=== PATIENT | female | born 1935 | race Caucasian/White ===

== ENCOUNTER 2022-01-06 13:15 | Outpatient (RCR) | payer MEDICARE, SELFPAY | END 2022-02-25 17:34 | disposition home or self-care (01) | PROVIDERS: PCP Physician Assistant; Visit Provider Physician Assistant | DX: M54.42 Lumbago with sciatica, left side (principal); Z51.89 Encounter for other specified aftercare | CPT/HCPCS: 97110; 97140 ==

== ENCOUNTER 2025-02-26 14:06 | Outpatient (CLI) | payer MEDICARE, SELFPAY | END 2025-02-26 14:07 | disposition home or self-care (01) | LOC: AMB 20:14 | PROVIDERS: Visit Provider Emergency Medicine | DX: R53.1 Weakness (principal); R19.7 Diarrhea, unspecified | CPT/HCPCS: A0425; A0427 ==

== ENCOUNTER 2025-02-26 14:41 | Inpatient (IN) | payer MEDICARE, SELFPAY ==
--- OUTSIDE RECORDS SUMMARY | 2025-02-26 14:44 | XMS_ITS | Clinical Summary ---
Author Organization [employer] [facility] Address [address] [place] [id number] Care Team Providers Care Coal Inspector Name Role Phone Yasmine Young Primary Care Provider [phone] Allergies No known active allergies Medications FISH OIL 1,000 MG CAP one tablet twice daily 0 8 Active CALCIUM + D 600 MG (1,500)-200 UNIT TAB one tablet twice daily 0 8 Active aspirin enteric coated 81 mg tablet Take 1 tablet by mouth once daily with a meal. 0 2 Active cholecalciferol (VITAMIN D) 1,000 unit capsuleIndications: Hypertension, unspecified type Take 1 capsule by mouth once daily. 0 0 Active amLODIPine (NORVASC) 10 mg tabletIndications:H ypertension, unspecified type Take 1 Tablet (10 mg) by mouth once daily. 100 Tablet 3 4 Active atorvastatin (LIPITOR) 40 mg tabletIndications:H yperlipidemia, unspecified hyperlipidemia type Take 1 Tablet (40 mg) by mouth at bedtime. 100 Tablet 3 4 Active levothyroxine (SYNTHROID) 88 mcg tabletIndications:H ypothyroidism, unspecified type Take 1 Tablet (88 mcg) by mouth once daily. 100 Tablet 3 4 Active lisinopriL (PRINIVIL; ZESTRIL) 40 mg tabletIndications:H ypertension, unspecified type Take 1 Tablet (40 mg) by mouth once daily. 100 Tablet 3 4 Active traZODone (DESYREL) 100 mg tabletIndications:I nsomnia, idiopathic Take 1 Tablet (100 mg) by mouth at bedtime. 100 Tablet 3 4 Active cephalexin 500 mg capsuleIndications: skin and skin structure infection Take 1 Capsule (500 mg) by mouth four times daily for 7 days. 28 Capsule 5 02/05/20 25 cephalexin 500 mg capsuleIndications: Cellulitis of skin Take 1 Capsule (500 mg) by mouth four times daily for 7 days. 28 Capsule 5 02/14/20 25 Active Problems Problem Noted Date Diagnosed Date Stage 3a chronic kidney disease 04/21/2024 Hyperlipidemia 04/21/2024 Prediabetes 03/05/2020 Hypertension 09/29/2012 Chest pain 03/08/2012 Dyslipidemia 03/08/2012 Hypothyroidism 03/08/2012 Equivocal stress test 03/03/2012 Overview (03/14/2012): -Stress echocardiogram 02/08/2012 Exercised for 1 minute and 36 seconds, stopping secondary to dyspnea [address] segments in inferolateral leads Echo images demonstrated lack of hyperdynamic response, but no definite RWMA Normal angiogram 03/08/12 Resolved Problems Problem Noted Date Diagnosed Date Resolved Date Screening for osteoporosis 04/11/2015 1 06/22/2023 Overview (04/11/2015): Normal bone density 04/10/15. Repeat 5-7 years. Post herpetic neuralgia 02/05/2008 07/0 11/2008 Unspecified hypothyroidism 11/02/2007 1 Other and unspecified hyperlipidemia 11/02/2007 03/08/2012 Insomnia, unspecified 11/02/20072011 Encounters Date Type Department Care Team Description 02/13/[address] [facility] [address] [place] [address] Raymond Redd MD Questions (Pain middle knuckle. ) 02/11/[address] [address] [place] [address] Yasmine Young PA Follow Up (Finger ); Hand Pain/problem (Also numbness in feet and toes) 02/06/2025 2:15 PM CDT Office Visit [facility] [address] [place] [address] Raymond Redd MD Follow Up (RT hand swelling- has gone down, but still having pain in the middle fingers and unable to lift ) 02/06/2025 Travel 02/05/[address] [facility] [address] [place] [address] Yasmine Young PA Derm Problem 01/30/[address] [address] [place] [address] Raymond Redd MD Results (labs) 01/28/2025 10:25 AM CDT Office Visit [facility] [address] [place] [address] Raymond Redd MD Hand Pain/problem (RT hand- swelling and redness, painful - 01/24 woke up ) 01/28/2025 Travel from Last 3 Months Immunizations Immunization Administration Dates Next Due AMB Influenza, IIV3 (Age >=3 years)(Flu Clinic Only) 03/10/2011,03/10/2010,03/07/2008 AMB Influenza, IIV4 PF (=>6 mos Flulaval,Fluzone Fluarix)(Flu Clinic Only) 03/01/2018 COVID-19 vaccine ([facility] 30mcg/0.3mL) PF, MDV 03/26/2021 Influenza, High-dose Inactivated 04/16/2016,03/09,02/27/2014 Influenza, IIV3 (Age 6-35 mos) 03/10/2011 Influenza, IIV3 (Age >=3 years) 02/07/20 13,01/27/2012,04/06/2007,2005,04/28/2005 Influenza, Inactivated AIIV4 (Age 65+ Years) Preserv Free 04/14/2023,03/18/2022,03/26/2021,2019 Influenza, Inactivated IIV3 (Age 65+ Years) Preserv Free 04/19/2024,03/07/2019,06/10/2017 Pneumococcal Poly,23-Valent (Pneumovax) 04/16/2016 Pneumococcal conj 13-Valent (Prevnar 13) 03/20/2015 Td, Preservative Free (age > = 7 Years) 11/12/2008 Family History Medical History Relation Name Comments Hyperlipidemia Brother 1 Cancer Brother 2 not sure what t ype of cancer Heart Disease Brother 3 CABG, defibril lator Heart Disease Father [place] in 60s Diabetes Mother Cancer Sister liver? Anesthesia Malignant Hyperthermia No Family History Cancer-breast No Family History Cancer-colon No Family History Relation Name Status Comments Brother 1 Brother 2 Brother 3 Father Mother Sister Social History Tobacco Use Types Packs/Day Years Used Date Smoking Tobacco: Former Cigarettes Smokeless Tobacco: Never Tobacco Cessation:Counseling Given: Yes Comments:off and on smoker (6 to 7 cigarettes a day) Alcohol Use Standard Drinks/Week Comments Not Currently 0 (1 standard drink = 0.6 oz pur e alcohol) very occasionally PHQ-2 Answer Date Recorded PHQ-2 TOTAL SCORE 2 04/19/2024 Social Connections Answer Date Recorded Do you often feel lonely or isolated from those around you? 0 04/19/2024 Financial Resource Strain Answer Date R ecorded Difficulty of Paying Living Expenses 3 04/19/2024 Difficulty of Paying Living Expenses Not on file 04/19/2024 Food Insecurity Answer Date Recorded Do you worry your food will run out before you are able to buy more? 1 04/19/2024 Transportation Needs Answer Date Record ed Does lack of transportation keep you from medica l appointments? 1 04/19/2024 Does lack of transportation keep you from work, meetings or getting things that you need? 1 04/19/2024 Housing Stability Answer Date Recorded What is your housing situation today? 1 04/19/2024 Utilities Answer Date Recorded Do you have trouble paying f or utilities (for example, heat, electricity, water, phone)? 1 04/19/2024 Comments No Sex and Gender Information Value Date Recorded Sex Assigned at Not on file Legal Sex Female 6:55 AM [employer] Gender Identity Not on file Sexual Orientation Not on file Obstetrics History Last Filed Vital Signs Vital Sign Reading Time Taken Comments Blood Pressure 148/69 02/06/2025 2:22 PM CDT Pulse 59 02/06/2025 2:22 PM CDT Temperature 36.7 C (98.1 F) 02/06/2025 2:22 PM CDT Respiratory Rate 20 06/06/2019 12:44 PM [employer] Oxygen Saturation 97% 02/06/2025 2:22 PM CDT Inhaled Oxygen Concentration - - Weight 73 kg (161 lb) 02/06/2025 2:22 PM CDT Height 157.2 cm (5' 1.89) 04/19/2024 10:[address] Body Mass Index 29.55 04/19/2024 10:03 AM [employer] Plan of Treatment Health Maintenance Due Date Last Done Comments Zoster (shingles) series for age 50+ (1 of 2) 11/18/1987 RSV vaccine for adults or (1 - 1-dose 75+ series) 2012 Tetanus booster 11/12/2018 11/12/2008 COVID-19 vaccine series ( season) 2025 03/26/2021, 08/01/2020, 07/11/2020 Influenza Vaccine (#1) 2025 , 04/14/2023, 03/18/2022, Additional history exists BMI (ht and wt on same day) for age 18+ 04/19/2025 04/19/2024, 04/14/2023, 04/08/2022, Additional history exists Medicare Wellness for age 65+ 04/20/2025 04/19/2024, 04/14/2023, 04/08/2022, Additional history exists Depression screening for age 12+ 04/23/2025 04/23/2024, 04/19/2024, 04/18/2023, Additional history exists DEXA/DXA scan for age 65+ Completed 04/10/2015, 11/2008 Pneumococcal series for age 50+ Completed 04/16/2016, 03/20/2015 Hepatitis B series for 19+ Aged Out N o longer eligible based on patient's age to complete this topic Procedures Procedure Name Priority Date/Time Associated Diagnosis Comments CBC W PLT NO DIFF Routine 01/28/2025 11: 35 AM CDT Cellulitis of skin BASIC METABOLIC PANEL Routine 01/28/2025 11:35 AM CDT Cellulitis of skin XR DXA BONE DENSITY 2 SITES AXIAL Routine 04/10/2015 2:25 PM [employer] Postmenopausal state from Last 3 Months or Most Recently Relevant to Health Maintenance Results * (ABNORMAL) CBC W PLT NO DIFF (01/28/2025 11:35 AM CDT) WHITE BLOOD CELL COUNT 12.5(H) 3.8 - 10.8 Thousand/ uL 01/29/2025 3:21 AM CDT [facility] RED BLOOD CELL COUNT 4.25 3.80 - 5.10 Million/u L 01/29/2025 3:21 AM CDT [facility] HEMOGLOBIN 12.2 11.7 - 15.5 g/dL 01/29/2025 3:21 AM CDT [facility] HEMATOCRIT 37.0 35.0 - 45.0 % 01/29/2025 3:21 AM CDT [facility] MCV 87.1 80.0 - 100.0 fL 01/29/2025 3:21 AM CDT [facility] MCH 28.7 27.0 - 33.0 pg 01/29/2025 3:21 AM CDT [facility] MCHC 33.0 32.0 - 36.0 g/dL 01/29/2025 3:21 AM CDT [facility] Comment: For adults, a slight decrease in the calculated MCHC value (in the range of 30 to 32 g/dL) is most likely not clinically significant; however, it should be interpreted with caution in correlation with other red cell parameters and the patient's clinical condition. RDW 13.7 11.0 - 15.0 % 01/29/2025 3:21 AM CDT [facility] PLATELET COUNT 328 140 - 400 Thousand/ uL 01/29/2025 3:21 AM CDT [facility] MPV 10.6 7.5 - 12.5 fL 01/29/2025 3:21 AM CDT [facility] Blood BLOOD SPECIMEN / Unknown [facility] / Unknown 01/28/2025 11:35 AM CDT 01/28/2025 11:35 AM CDT Raymond Redd MD HEMATOLOGY Final Result [facility] [address] [place] [address], * (ABNORMAL) BASIC METABOLIC PANEL (01/28/2025 11:35 AM CDT) SODIUM 137 135 - 146 mmol/L 01/29/2025 4:57 AM CDT [facility] POTASSIUM 4.2 3.5 - 5.3 mmol/L 01/29/2025 4:57 AM CDT [facility] CARBON DIOXIDE 23 20 - 32 mmol/L 01/29/2025 4:57 AM CDT [facility] GLUCOSE 104(H) 65 - 99 mg/dL 01/29/2025 4:57 AM CDT [facility] Comment: Fasting reference interval For someone without known diabetes, a glucose value between 100 and 125 mg/dL is consistent with prediabetes and should be confirmed with a follow-up test. CALCIUM 9.2 8.6 - 10.4 mg/dL 01/29/2025 4:57 AM CDT [facility] CREATININE 1.09(H) 0.60 - 0.95 mg/dL 01/29/2025 4:57 AM CDT [facility] BUN/CREATININE RATIO 17 6 - 22 (calc) 01/29/2025 4:57 AM CDT [facility] EGFR 49(L) > OR = 60 mL/min/1. 73m2 01/29/2025 4:57 AM CDT [facility] UREA NITROGEN (BUN) 18 7 - 25 mg/dL 01/29/2025 4:57 AM CDT [facility] ELECTROLYTE BALANCE 12 7 - 17 mmol/L (calc) 01/29/2025 4:57 AM CDT [facility] CHLORIDE 102 98 - 110 mmol/L 01/29/2025 4:57 AM CDT [facility] Blood BLOOD SPECIMEN / Unknown [facility] / Unknown 01/28/2025 11:35 AM CDT 01/28/2025 11:35 AM CDT Raymond Redd MD CHEMISTRY Final Result [facility] [address] [place] [address], [place] [phone] * XR DXA BONE DENSITY 2 SITES (04/10/2015 2:25 PM [employer]) Anatomical Region Laterality Modality Spine, HIPS, HIPL, HIPR Other Narrative 04/11/2015 8:04 AM [employer] Please see scanned document for results of this study. Yuly OWUSU DEXA Final Resu lt from Last 3 Months or Most Recently Relevant to Health Maintenance Insurance MEDICARE PART A HB ONLY MEDICARE PART B HB ONLY [employer] MED[employer]ARE ADVANTAGE Advance Directives * Full Code (Latest Code Status on File) Date Activated Date Inactivated Comments 03/08/2012 9:51 AM 03/08/2012 5:50 PM Care Teams Coal Inspector Relationship Specialty Start Date End Date Yasmine Young PA [address] [place] [address] PCP - General Physician [employer] Patcher 04/17/23
[2025-02-26 14:48] VITALS: BP 148/69; PULSE 63; RESP 16; TEMP 36.5; O2SAT 94; BMI 29.4
--- NOTE | 2025-02-26 15:23 | ED.GENADULT ---
HPI - General Adult General Date Seen: 02/26/25 Chief complaint: Diarrhea Stated complaint: Weakness Time Seen by Provider: 02/26/25 15:08 History of Present Illness HPI narrative: 89 yo F presenting to the ER today from home by 911. She has had diarrhea for 4 days since Tuesday. This morning her family tried to contact her by phone, but the patient did not answer. She was found on the floor of her living room and had diarrhea all over. She think she was probably on the floor for a couple of hours. Blood sugar was 162 per EMS. Per her records from [facility] she has a past medical history hypertension, shingles, hypothyroidism, chest pain within normal angiogram in 2011. She was treated with a course of cephalexin for cellulitis- swelling and infection of her right hand in January. She has notes from the [facility] clinic on 01/28 . She had a follow-up visit on 02/06. History from the patient and from her daughter says that she began to be sick sometime in the past few days. Her daughter's visitor last and she was definitely fairly normal then. Patient thinks she probably started developing diarrhea on Tuesday. She describes having watery brownish dark brown diarrhea. No blood or mucus. At least 3 times per day. Along with that very poor appetite but no nausea vomiting. No fever. No significant abdominal pain at home. Patient does not exactly recall what happened but she was in her living room and then she fell to the floor. She is not sure how long she had been there but probably a couple of hours this morning. She had been incontinent of diarrhea on the floor because she was too weak to get up and get to the bathroom. She denies any painful injuries from falling. Her daughters tried to call her but she did not answer the phone, so they called for a welfare check and EMS providers found her on the floor and brought her here to the ER. Related Data Home Medications ?Medication ?Instructions ?Recorded ?Confirmed Calcium + D 02/26/25 Vitamin D (with calcium) 02/26/25 amlodipine 10 mg tablet 10 mg PO DAILY 02/26/25 02/26/25 aspirin 81 mg tablet,delayed 81 mg PO DAILY 02/26/25 02/26/25 release (Adult Aspirin Regimen) atorvastatin 40 mg tablet 40 mg PO QHS 02/26/25 02/26/25 levothyroxine 88 mcg tablet 88 mcg PO DAILY 02/26/25 02/26/25 lisinopril 40 mg tablet 40 mg PO DAILY 02/26/25 02/26/25 omega 7-jaf-ves-fish oil 1,000 mg 1 cap PO BID 02/26/25 02/26/25 (120 mg-180 mg) capsule (Fish Oil) trazodone 100 mg tablet 100 mg PO QHS PRN 02/26/25 02/26/25 Allergies Allergy/AdvReac Type Severity Reaction Status Date / Time No Known Drug Allergies Allergy Verified 02/26/25 14:54 Exam Narrative: Exam Narrative: Constitutional: Appears well-developed and well-nourished. Alert. Looks very tired and worn down, but is Conversant. HENT: Head: Atraumatic. Nose: Nose normal. Mouth/Throat: Oral mucosa is clear but very dry and desiccated. no trismus. There is some adherent brown material on her tongue. Pharynx normal. Eyes: Conjunctivae normal. EOM normal. Pupils equal, round, and reactive to light. No scleral icterus. Neck: Normal range of motion. Neck supple. No tracheal deviation present. No JVD Cardiovascular: Normal rate, regular rhythm. No gallop. No friction rub. No murmur heard. Symmetric radial artery pulses Pulmonary/Chest: Effort normal. No stridor. No respiratory distress. No wheezes. No rales. No rhonchi . No tenderness. Abdominal: Soft. Bowel sounds normal. No distension. No mass. Left lower quadrant and left mid abdominal tenderness. No rebound. No guarding. Musculoskeletal: RUE: Normal range of motion. No tenderness. No deformity LUE: Normal range of motion. No tenderness. No deformity RLE: Normal range of motion. No edema. No tenderness. No deformity LLE: Normal range of motion. No edema. No tenderness. No deformity Neurological: Alert and oriented to person, place, and time. Generalized weakness and requires assistance to sit up in bed. No focal strength deficit. CN II-VII intact. No sensory deficit. GCS eye subscore is 4. GCS verbal subscore is 5. GCS motor subscore is 6. Normal coordination Skin: Skin is warm and dry. No rash noted. No pallor. Normal capillary refill. She does have some dry feces on her hands and under her fingernails. She also has an abrasion on her left lateral knee that is possibly a pressure sore from laying on the floor. Psychiatric: Normal mood. Const: Vital Signs, click to edit/add: Vital Signs - 24 hr 02/26/25 14:48 02/26/25 19:24 Temperature 97.7 F 98.6 F Pulse Rate [Pulse Oximeter] 63 50 L Respiratory Rate 16 18 Blood Pressure [Ri ght Upper Arm] 148/69 H 130/49 L Pulse Oximetry 94 93 Oxygen Delivery Me thod Room Air Room Air Course Course ED Course: Recheck-patient back from CT. Nurses are so finally working on placing Lovett catheter had ordered earlier to monitor urine output. CT scan does show evidence the for bladder or distension with vesicoureteral reflux. After his Lovett catheter was placed she had output of more than 1200 mL of yellow urine. Reevaluation(s) Reevaluation #1: Has not had any further diarrhea since arriving here therefore stool culture not obtained yet. Vital Signs Vital signs: Initial Vital Signs Temperature 97.7 F 02/26/25 14:48 Temperature Source Temporal Artery Scan 02/26/25 14:48 Pulse Rate 63 02/26/25 14:48 Respiratory Rate 16 02/26/25 14:48 Blood Pressure 148/69 H 02/26/25 14:48 Blood Pressure Mean 95 02/26/25 14:48 Blood Pressure Position Supine 02/26/25 14:48 Pulse Oximetry 94 02/26/25 14:48 Oxygen Delivery Method Room Air 02/26/25 14:48 Vital Signs Temperature 97.7 F 02/26/25 14:48 Pulse Rate 63 02/26/25 14:48 Respiratory Rate 16 02/26/25 14:48 Blood Pressure 148/69 H 02/26/25 14:48 Pulse Oximetry 94 02/26/25 14:48 Oxygen Delivery Method Room Air 02/26/25 14:48 Temperature 98.6 F 02/26/25 19:24 Pulse Rate 50 L 02/26/25 19:24 Respiratory Rate 18 02/26/25 19:24 Blood Pressure 130/49 L 02/26/25 19:24 Pulse Oximetry 93 02/26/25 19:24 Oxygen Delivery Method Room Air 02/26/25 19:24 Medications Administered Medications: Discontinued Medications Generic Name Dose Route Start Last Admin Trade Name Freq PRN Reason Stop Dose Admin Sodium Chloride 1,000 mls @ 1,000 mls/hr 02/26/25 15:30 02/26/25 15:59 0.9 % Sodium Chloride 1000 Ml IV 02/26/25 16:29 1,000 mls/hr .Q1H ESPINOZA Administration Medical Decision Making MDM Narrative Medical decision making narrative: 89-year-old female brought to the ER today by EMS from home. She was not answering her phone this morning and was found on the floor of her living room when EMS arrived 1. GI. Has been having frequent brown watery diarrhea since last Tuesday or so, roughly 4 days. Concern with the diarrhea is potential for C diff. Stool culture and C. diff study has been ordered but not obtained yet. She has recently been on antibiotics for his cellulitis affecting her left hand. Fortunately CT scan of her abdomen and pelvis did not show any evidence for severe colitis or toxic megacolon. Surprisingly, she has not had any further diarrhea since arrival here in the ER. CT also did not show any evidence for any other acute surgical GI emergency. COVID/influenza/RSV negative looking for potential viral causes of her diarrhea. 2. Renal/electrolytes. The patient does clinically appear to be quite dehydrated with dry mucous membranes and generalized weakness. Concern here would be for an acute kidney injury due to her dehydration. She was also found on the floor and with an unknown down time. She think she probably fell this morning but is not exactly clear. Concern would be also potentially for rhabdomyolysis. Fortunately lab workup shows fairly normal electrolytes with sodium 143, potassium 4.0. Kidney function is fairly normal with a BUN of 30 and a creatinine of 1.0, likely elevated BUN due to pre renal. CK is abnormal at 1979 Magnesium normal at 2.3. I ordered normal saline bolus to help promote diuresis in the setting of elevated CK to try to prevent an acute kidney injury. UA does not show any sign of infection but does show 2+ blood which is probably actually myoglobin from her muscle injury. On CT scan we do note significant bladder distention and bilateral renal reflux. Lovett catheter was placed and she had output of more than 1200 mL of clear sheehan/orange tinged urine. 3. Cardiac. Patient denies any chest pain or palpitations. EKG shows nonspecific changes but no definite ischemia. Troponin is minimally detectable at 0.09 (this is 2 times the upper limit of the cut off for normal at 0.04). 2 hour delta troponin shows no change at 0.09. Flat troponin would suggest this is probably demand ischemia rather than evolving ACS. 4. Hepatic. LFTs are mildly abnormal with a total bilirubin of 1.9, AST 100, ALT of 39. Unclear etiology. 5. Pulmonary. CT scan shows ?tree in bud? nodular opacities similar to CT from 3 years ago in 2021. She is not having any acute respiratory symptoms. Discussed with our hospitalist, Dr. Gonzales, who will admit for hydration and further workup. Lab Data Labs: Lab Results 02/26/25 02/26/25 02/26/25 Range/Units 15:56 18:04 18:30 WBC 12.07 H (4.50-11.00) K/uL RBC 4.94 (4.00-5.20) m/uL Hgb 13.8 (12.0-16.0) gm/dL Hct 43.2 (33.0-51.0) % MCV 87 (80-100) fL MCH 28 (26-34) pg MCHC 32 (32-36) gm/dL RDW Coeff of Ascencion 15.0 (11.5-15.5) % Plt Count 329 (140-440) K/uL Neut % (Auto) 79.7 H (42.0-72.0) % Lymph % (Auto) 9.8 L (20-44) % [place] % (Auto) 9.1 (0.0-11.0) % Eos % (Auto) 0.1 (0.0-7.0) % Baso % (Auto) 0.1 (0.0-3.0) % Neut # (Auto) 9.60 H (1.7-7.0) K/uL Lymph # (Auto) 1.20 (0.90-2.90) K/uL [place] # (Auto) 1.10 H (0.00-0.90) K/UL Eos # (Auto) 0.00 (0.00-0.50) K/uL Baso # (Auto) 0.00 (0.00-0.30) K/uL Abs Immat Gran (auto) 0.10 (0.00-0.30) K/uL Imm/Tot Granulo (auto) 1.2 % Sodium 143 (135-149) mmol/L Potassium 4.0 (3.6-5.1) mmol/L Chloride 105 (96-114) mmol/L Carbon Dioxide 24 (20-32) mmol/L Anion Gap 14 (7-15) mEq/L BUN 30 (7-30) mg/dL Creatinine 1.0 (0.5-1.5) mg/dL Estimated Creat Clear 31.35 Estimated GFR 55 ml/min Glucose 132 H (60-115) mg/dL Lactate 1.9 (0.5-1.9) mmol/L Calcium 9.4 (8.4-10.6) mg/dL Magnesium 2.3 (1.5-2.6) mg/dL Total Bilirubin 1.9 H (0.1-1.5) mg/dL AST 100 H (12-35) U/L ALT 39 H (4-35) U/L Alkaline Phosphatase 87 (40-150) U/L Total Creatine Kinase 1979 H (41-117) U/L Troponin I 0.09 H* 0.09 H* (0.01-0.04) ng/mL Total Protein 7.5 (6.0-8.3) g/dL Albumin 4.2 (3.3-5.0) g/dL Urine Color Yellow (Yellow) Urine Appearance Clear (Clear) Urine pH 5.5 (5.0-8.5) Ur Specific [place] 1.025 (1.000-1.030) Urine Protein 2+ A (Negative) Urine Glucose (UA) Negative (Negative) Urine Ketones 1+ A (Negative) Urine Blood 2+ A (Negative) Urine Nitrite Negative (Negative) Urine Bilirubin Negative (Negative) Urine Urobilinogen 0.2 (0.2-1.0) Ur Leukocyte Esterase Negative (Negative) Urine RBC 0-2 (0-2) Urine WBC 0-2 (0-5) Ur Squamous Epith Cells Few (None-Few) Urine Bacteria None (None) SARS-CoV-2 (PCR) Negative SARS-CoV-2 (Negative) Influenza Type A (PCR) Negative PCR FLU A (Negative) Influenza Type B (PCR) Negative PCR FLU B (Negative) RSV (PCR) Negative PCR RSV (Negative) Imaging Data CT scan - abdomen: Attestation: I have reviewed the pertinent imaging results. Radiologist's impression: IMPRESSION: 1. Markedly distended bladder and moderate bilateral hydronephrosis, possibly secondary to reflux. No renal or ureteral calculi. No renal parenchymal abnormality, however please correlate with urinalysis to exclude possible superimposed infection 2. The bowel is unremarkable 3. Similar right middle lobe tree-in-bud nodular opacities and bone marrow heterogeneity compared to prior CT from 2021 ECG Data Attestation: I personally reviewed and interpreted this ECG as follows: Interpretation: Sinus rhythm with premature atrial complexes. Rate 64. TN interval 148 Normal QRS axis. No pathologic Q-waves. No ST segment elevation or depression. Nonspecific T-wave flattening inversions in leads V1-V3. Significant artifact in the baseline due to patient shivering limits sensitivity for subtle changes QT 452, QTC 466 Discharge Plan Discharge Clinical Impression: Diarrhea, Dehydration, Elevated CK, Abnormal LFTs (liver function tests), Elevated troponin Patient Disposition: Admitted As Observation
--- NOTE | 2025-02-26 15:27 | CRLHL7_ITS ---
For Patients: As a result of the Century Cures Act, medical imaging exams and procedure reports are released immediately into your electronic medical record. You may view this report before your referring provider. If you have questions, please contact your health care provider. INDICATION: Diarrhea for 4 days TECHNIQUE: CT abdomen and pelvis acquired with 78 cc Isovue 370 IV contrast. COMPARISON: CT abdomen and pelvis 10/09/2021 FINDINGS: Lower chest: Similar subtle peripheral tree-in-bud nodular opacities in the right middle lobe. Coronary artery calcifications Liver: Unremarkable. Normal in size and attenuation. No suspicious masses. Gallbladder and bile ducts: Cholelithiasis. No biliary dilatation. Pancreas: Unremarkable. No mass or inflammation. Spleen: Unremarkable. Normal in size. No masses. Adrenal glands: Unremarkable. No nodules. Kidneys: Moderate bilateral hydronephrosis. Symmetric nephrograms. No renal parenchymal or ureteral calculi. GI tract: Colonic diverticulosis. Normal in caliber. No sign of mass or inflammation. Vasculature: Abdominal aorta is normal in caliber. Extensive atherosclerotic calcifications. Mesenteric arteries are patent. Lymph nodes: No lymphadenopathy. Peritoneum/Abdominal Wall: Unremarkable. No sign of mass or infiltration. No free air or significant free fluid. Pelvis: Prior hysterectomy. Markedly distended bladder. Bones: Similar heterogeneity of the visualized bone marrow. IMPRESSION: 1. Markedly distended bladder and moderate bilateral hydronephrosis, possibly secondary to reflux. No renal or ureteral calculi. No renal parenchymal abnormality, however please correlate with urinalysis to exclude possible superimposed infection 2. The bowel is unremarkable 3. Similar right middle lobe tree-in-bud nodular opacities and bone marrow heterogeneity compared to prior CT from 2021 Please note that all CT scans at this facility use dose modulation, iterative reconstruction, and/or weight-based dosing when appropriate to reduce radiation dose to as low as reasonably achievable. Dictated by Rocio Flores MD @ 02/26/2025 5:33:33 PM (Electronically Signed)
[2025-02-26 16:04] LABS: Hematocrit* 43.2 % (33.0-51.0); Hemoglobin* 13.8 gm/dL (12.0-16.0); Immature Granulocytes Pct Auto 1.2 %; Mean Corpuscular HGB Conc 32 gm/dL (32-36); Mean Corpuscular Hemoglobin 28 pg (26-34); Mean Corpuscular Volume 87 fL (80-100); RDW Coefficient of Variation % 15.0 % (11.5-15.5); Red Blood Count* 4.94 m/uL (4.00-5.20); White Blood Count* 12.07 K/uL (4.50-11.00)
[2025-02-26 16:07] LABS: Lactate* 1.9 mmol/L (0.5-1.9)
[2025-02-26 16:08] LABS: Immature Granulocytes Abs Auto 0.10 K/uL (0.00-0.30); Lymphocytes Absolute Auto 1.20 K/uL (0.90-2.90); Slide Review Reflex No
[2025-02-26 16:26] LABS: Albumin* 4.2 g/dL (3.3-5.0); Chloride* 105 mmol/L (96-114)
[2025-02-26 16:27] LABS: Potassium* 4.0 mmol/L (3.6-5.1); Sodium* 143 mmol/L (135-149)
[2025-02-26 16:29] LABS: Alanine Aminotransferase* 39 U/L (4-35); Anion Gap 14 mEq/L (7-15); Aspartate Amino Transferase* 100 U/L (12-35); Blood Urea Nitrogen* 30 mg/dL (7-30); Carbon Dioxide* 24 mmol/L (20-32); Creatinine* 1.0 mg/dL (0.5-1.5); Est. Creatinine Clearance* 31.35; Estimated Glomerular Filt Rate 55 ml/min
[2025-02-26 16:30] LABS: Alkaline Phosphatase* 87 U/L (40-150); Bilirubin Total* 1.9 mg/dL (0.1-1.5); Calcium* 9.4 mg/dL (8.4-10.6); Glucose* 132 mg/dL (60-115); Total Protein* 7.5 g/dL (6.0-8.3)
[2025-02-26 16:38] LABS: Creatine Kinase* 1979 U/L (41-117)
[2025-02-26 16:42] LABS: PCR FLU A Negative PCR FLU A (Negative); PCR FLU B Negative PCR FLU B (Negative); PCR RSV Negative PCR RSV (Negative); SARS PCR* Negative SARS-CoV-2 (Negative)
[2025-02-26 18:18] LABS: Appearance Urine Clear (Clear)
[2025-02-26 19:24] VITALS: BP 130/49; PULSE 50; RESP 18; TEMP 37; O2SAT 93
[2025-02-26 20:15] VITALS: BP 170/74; PULSE 62; RESP 18; TEMP 36.5; O2SAT 94
--- NOTE | 2025-02-26 21:49 | CRLHL7_ITS ---
For Patients: As a result of the Century Cures Act, medical imaging exams and procedure reports are released immediately into your electronic medical record. You may view this report before your referring provider. If you have questions, please contact your health care provider. Indication: Altered mental status Technique: Noncontrast CT through the head with multiplanar reformats Comparison: None Findings: Brain: Asymmetric hypodensity involving the left caudate and internal capsule. No acute transcortical infarct is seen. No acute hemorrhage. No significant mass effect or midline shift. Mild chronic senescent disease. Ventricles: No acute abnormality appreciated. Orbits, sinuses, mastoids: No acute abnormality appreciated. Calvarium and soft tissues: No acute abnormality appreciated. Impression: Asymmetric hypodensity involving the left caudate and internal capsule suspicious for a subacute infarct. No acute hemorrhage or significant mass effect or midline shift. Findings were communicated by telephone to Dr. Dusty Gonzales at 2323 on 02/26/2025. Please note that all CT scans at this facility use dose modulation, iterative reconstruction, and/or weight-based dosing when appropriate to reduce radiation dose to as low as reasonably achievable. Dictated by Homero Sharp MD @ 02/26/2025 11:27:27 PM (Electronically Signed)
--- NOTE | 2025-02-26 21:49 | CRLHL7_ITS ---
For Patients: As a result of the Cures Act, medical imaging exams and procedure reports are released immediately into your electronic medical record. You may view this report before your referring provider. If you have questions, please contact your health care provider. Indication: Altered mental status Technique: Two views of the chest Comparison: None Findings/Impression: Mild cardiomegaly, no acute cardiopulmonary process detected. Dictated by Homero Sharp MD @ 02/26/2025 11:23:11 PM (Electronically Signed)
[2025-02-26 22:43] LABS: NT Pro B Type NatriureticPept* 1630 pg/mL (See Note); Procalcitonin* 0.07 ng/mL (<0.50)
[2025-02-26 22:46] VITALS: PULSE 53
--- NOTE | 2025-02-26 22:54 | PM.IMHP1 ---
Assessment and Plan Assessment and plan (1) Stroke: Problem comment: CT head 02/26/2025: Impression: Asymmetric hypodensity involving the left caudate and internal capsule suspicious for a subacute infarct. No acute hemorrhage or significant mass effect or midline shift. Status: Acute (2) Rhabdomyolysis: Problem comment: Relatively mild. Due to prolonged laying on the floor Status: Acute (3) Elevated troponin: Problem comment: Continue to follow. She has electrocardiographic changes as well. playground monitor and echo. Trend troponin. Status: Acute (4) Abnormal LFTs (liver function tests): Problem comment: AST greater than ALT Cause uncertain. Patient's daughter thinks that she does not drink but she says he does drink alcohol Status: Acute (5) Dehydration: Problem comment: Due to prolonged immobility on the floor Status: Acute (6) Diarrhea: Problem comment: On recent antibiotics for hand cellulitis, Keflex, check for C diff and monitor Status: Acute (7) Altered mental status: Problem comment: This is likely primarily due to stroke though other more chronic degenerative brain disease may be present. Daughter is due indicate that she is mentally and functionally been doing quite well. Status: Acute Plan Patient is admitted to the hospital for ongoing evaluation of stroke, rehab, addressing altered mental status, cardiac problems, rhabdomyolysis. Total Time Spent Total Time Spent: Total time spent today is 90 minutes in reviewing records, coordination of care, discussing with daughters and other providers ongoing evaluation management of multiple problems. Hospitalist- H&P: HPI History of Present Illness Time Seen by Provider: 22:00 Date Seen: 02/26/25 Chief complaint: Weakness Narrative: Susy Radford is a 89 year old female found down today at home and unable to get up due to weakness. Her daughter had called her to talk to her about an MRI appointment for her hand. She did not crab picker the phone so the daughter called the police to do a welfare check on her. They were able to get into her house using a gupta from a lock box and found her lying on the floor too weak to get up. She was incontinent of stool but her daughters did not think it was diarrhea stool. She had however been complaining of diarrhea for a few days prior to this event. She also reported that she was in eating or drinking much because she thought it would make the diarrhea worse. Her daughter saw her 5 days ago and she seemed to be in normal health without any concerns or problems. At this time the patient is unable to give any meaningful history. She does answer some questions appropriately but at other times is quite confused. She she is not oriented to circumstances and does not even identify her daughters. According to the daughters this is far from her baseline. Aside from the confusion and weakness and recent concern about diarrhea the patient and the daughters have no other specific concerns about illness or injury. [facility] Medical History (Updated 02/27/25 @ 00:08 by Dusty Gonzales MD) Hyperlipidemia ?E78.5 - Hyperlipidemia, unspecified (ICD-10) Hypertension ?I10 - Essential (primary) hypertension (ICD-10) Rhabdomyolysis ?M62.82 - Rhabdomyolysis (ICD-10) Stroke ?I63.9 - Cerebral infarction, unspecified (ICD-10) Surgical History (Updated 02/26/25 @ 23:58 by Dusty Gonzales MD) History of hysterectomy ?Z90.710 - Acquired absence of both cervix and uterus (ICD-10) Social History (Updated 02/26/25 @ 23:59 by Dusty Gonzales MD) Narrative: She is here today with 2 daughters who live in the [facility]. She lives at [facility] independently. Was previously drinking and smoking but her daughters think she has not done that for some time. What is your current living situation?: unable to answer Problems where you live: unable to answer In the past 12 months, utilities in danger of being shut off: unable to answer In past 12 months, lack of transportation kept you from medical appts, meetings, work, or getting things needed for daily living: unable to answer In the past 12 mos, have been you worried that your food would run out before you had money to buy more?: unable to answer In the past 12 mos, the food you bought just didn't last and you didn't have money to buy more?: unable to answer Highest level of school completed/degree received: don't know Non-prescribed substance use details: unable to respond How often does anyone, including family, friends and others, physically hurt you: unable to answer How often does anyone, including family, friends and others, insult or talk down to you: unable to answer How often does anyone, including family, friends and others, threaten you with harm: unable to answer How often does anyone, including family, friends and others, scream or curse at you: unable to answer Meds Home Medications and Allergies Home Medications ?Medication ?Instructions ?Recorded ?Confirmed ?Type Calcium + D 02/26/25 History Vitamin D (with calcium) 02/26/25 History amlodipine 10 mg tablet 10 mg PO DAILY 02/26/25 02/26/25 History aspirin 81 mg tablet,delayed 81 mg PO DAILY 02/26/25 02/26/25 History release (Adult Aspirin Regimen) atorvastatin 40 mg tablet 40 mg PO QHS 02/26/25 02/26/25 History levothyroxine 88 mcg tablet 88 mcg PO DAILY 02/26/25 02/26/25 History lisinopril 40 mg tablet 40 mg PO DAILY 02/26/25 02/26/25 History omega 4-mld-jlf-fish oil 1,000 mg 1 cap PO BID 02/26/25 02/26/25 History (120 mg-180 mg) capsule (Fish Oil) trazodone 100 mg tablet 100 mg PO QHS PRN 02/26/25 02/26/25 History Allergies Allergy/AdvReac Type Severity Reaction Status Date / Time No Known Drug Allergies Allergy Verified 02/26/25 14:54 Exam Narrative: Exam Narrative: She is resting comfortably but arouses to voice. She follows simple commands and intermittently answers question appropriately. She is not oriented to her circumstances. She does not recognize her daughters. Head is without apparent trauma. Pupils are equal round reactive to light. Extraocular movements are full. Visual li are intact. There is no facial asymmetry. Oropharynx with dry mucous membranes. Otherwise normal. Tongue is midline. Neck is supple without mass or adenopathy. Respirations are clear to auscultation. Cardiovascular: S1, S2, relatively regular rhythm. Abdomen is soft without tenderness. She has approximately equal strength in all 4 extremities in distal and proximal muscles. She is unable to do orctyh-bwgo-abcaae with her left hand but does it fairly well and accurately with her right. Const: Vital Signs, click to edit/add: Vital Signs - 24 hr 02/26/25 14:48 02/26/25 19:24 02/26/25 20:15 Temperature 97.7 F 98.6 F 97.7 F Pulse Rate [Pulse Oximeter] 63 50 L 62 Respiratory Rate 16 18 18 Blood Pressure [Ri ght Arm] 170/74 H Blood Pressure [Ri ght Upper Arm] 148/69 H 130/49 L Pulse Oximetry 94 93 94 Oxygen Delivery Me thod Room Air Room Air Room Air 02/26/25 20:15 Temperature Pulse Rate [Pulse Oximeter] Respiratory Rate 18 Blood Pressure [Ri ght Arm] Blood Pressure [Ri ght Upper Arm] Pulse Oximetry 94 Oxygen Delivery Me thod Room Air Documenting provider has reviewed patient's vital signs: yes Hospitalist - H&P: Result Labs Labs: Short CBC 02/26/25 Range/Units 15:56 WBC 12.07 H (4.50-11.00) K/uL Hgb 13.8 (12.0-16.0) gm/dL Hct 43.2 (33.0-51.0) % Plt Count 329 (140-440) K/uL BMP 02/26/25 15:56 Sodium 143 Potassium 4.0 Chloride 105 Carbon Dioxide 24 BUN 30 Creatinine 1.0 Glucose 132 H Calcium 9.4 Cardiac Enzymes 02/26/25 02/26/25 Range/Units 15:56 18:30 Total Creatine Kinase 1979 H (41-117) U/L Troponin I 0.09 H* 0.09 H* (0.01-0.04) ng/mL Liver Function 02/26/25 Range/Units 15:56 Total Bilirubin 1.9 H (0.1-1.5) mg/dL AST 100 H (12-35) U/L ALT 39 H (4-35) U/L Alkaline Phosphatase 87 (40-150) U/L Albumin 4.2 (3.3-5.0) g/dL Urine 02/26/25 Range/Units 18:04 Urine Color Yellow (Yellow) Urine Appearance Clear (Clear) Urine pH 5.5 (5.0-8.5) Ur Specific [place] 1.025 (1.000-1.030) Urine Protein 2+ A (Negative) Urine Glucose (UA) Negative (Negative) ECG Attestation: I personally reviewed and interpreted this ECG as follows: (Sinus rhythm with frequent PACs and nonspecific ST-T changes) ECG interpretation date: 02/26/[address] scan - abdomen: Radiologist's impression: INDICATION: Diarrhea for 4 days TECHNIQUE: CT abdomen and pelvis acquired with 78 cc Isovue 370 IV contrast. COMPARISON: CT abdomen and pelvis 10/09/2021 FINDINGS: Lower chest: Similar subtle peripheral tree-in-bud nodular opacities in the right middle lobe. Coronary artery calcifications Liver: Unremarkable. Normal in size and attenuation. No suspicious masses. Gallbladder and bile ducts: Cholelithiasis. No biliary dilatation. Pancreas: Unremarkable. No mass or inflammation. Spleen: Unremarkable. Normal in size. No masses. Adrenal glands: Unremarkable. No nodules. Kidneys: Moderate bilateral hydronephrosis. Symmetric nephrograms. No renal parenchymal or ureteral calculi. GI tract: Colonic diverticulosis. Normal in caliber. No sign of mass or inflammation. Vasculature: Abdominal aorta is normal in caliber. Extensive atherosclerotic calcifications. Mesenteric arteries are patent. Lymph nodes: No lymphadenopathy. Peritoneum/Abdominal Wall: Unremarkable. No sign of mass or infiltration. No free air or significant free fluid. Pelvis: Prior hysterectomy. Markedly distended bladder. Bones: Similar heterogeneity of the visualized bone marrow. IMPRESSION: 1. Markedly distended bladder and moderate bilateral hydronephrosis, possibly secondary to reflux. No renal or ureteral calculi. No renal parenchymal abnormality, however please correlate with urinalysis to exclude possible superimposed infection 2. The bowel is unremarkable 3. Similar right middle lobe tree-in-bud nodular opacities and bone marrow heterogeneity compared to prior CT from 2021 CT scan - head: Radiologist's impression: Impression: Asymmetric hypodensity involving the left caudate and internal capsule suspicious for a subacute infarct. No acute hemorrhage or significant mass effect or midline shift. Chest x-ray: Radiologist's impression: Findings/Impression: Mild cardiomegaly, no acute cardiopulmonary process detected.
[2025-02-26 23:00] VITALS: PULSE 60; RESP 18
[2025-02-26] MEDS: LACTATED RINGERS 1000 ML 1,000 ML 125 ML IV (23:08)
[2025-02-26 23:14] VITALS: BP 177/61; PULSE 60; RESP 18; TEMP 36.8; O2SAT 98
[2025-02-27] VITALS (10 sets, daily range): BP systolic 126–164; BP diastolic 48–93; PULSE 51–126; RESP 16–18; TEMP 36.3–36.8; O2SAT 94–97
--- NOTE | 2025-02-27 00:01 | CRLHL7_ITS ---
For Patients: As a result of the Cures Act, medical imaging exams and procedure reports are released immediately into your electronic medical record. You may view this report before your referring provider. If you have questions, please contact your health care provider. Indication: Abnormal findings on CT Technique: MRI brain without contrast is obtained. Axial diffusion, susceptibility, FLAIR and T2 weighted images are obtained. Sagittal T1 weighted images are obtained. Comparison: CT brain February 26, 2025 Findings: Multiple patchy areas of acute infarct in the left MCA distribution involving left caudate, insula posterolateral temporal lobe. Subacute appearing infarct within the left lentiform nucleus. There is small focus of hemorrhage within the left lentiform. A curvilinear signal drop on the susceptibility weighted images within the focus of infarct involving left posterolateral temporal lobe could represent small vascular clot versus st sluggish agnant blood flow. White matter Scattered patchy areas of signal abnormalities are nonspecific and are likely related to chronic microvascular ischemic changes. Old lacunar infarct in right awad radiata. Parenchymal atrophy Mild generalized. Major intracranial flow voids are preserved. No fluid signal abnormalities of the paranasal sinuses. Bilateral ocular lens implantation. Small right mastoid effusion. Impression: 1. Multiple patchy areas of acute infarction in the left MCA distribution involving left basal ganglia, insula and posterolateral temporal lobe. 2. Redemonstration of subacute infarct in the left lentiform with small focus of hemorrhage. Findings were communicated with Dr. Zunilda Vilchis at 12:40 p.m. on 02/27/2025. Dictated by Chasity Liz MD @ 02/27/2025 12:45:18 PM (Electronically Signed)
[2025-02-27] MEDS: LACTATED RINGERS 1000 ML 1,000 ML 125 ML IV ×2 (05:51→16:16)
[2025-02-27] MEDS: LEVOTHYROXINE 88 MCG TABLET PO (05:52)
[2025-02-27 06:33] LABS: Hematocrit* 37.3 % (33.0-51.0); Hemoglobin* 12.0 gm/dL (12.0-16.0); Immature Granulocytes Abs Auto 0.02 K/uL (0.00-0.30); Immature Granulocytes Pct Auto 0.2 %; Mean Corpuscular HGB Conc 32 gm/dL (32-36); Mean Corpuscular Hemoglobin 29 pg (26-34); Mean Corpuscular Volume 89 fL (80-100); RDW Coefficient of Variation % 15.3 % (11.5-15.5); Red Blood Count* 4.20 m/uL (4.00-5.20); White Blood Count* 9.54 K/uL (4.50-11.00)
[2025-02-27 06:34] LABS: Lymphocytes Absolute Auto 1.80 K/uL (0.90-2.90); Slide Review Reflex No
--- NOTE | 2025-02-27 06:42 | PC.NURSE ---
End of shift: Pt arrived at 2014, drowsy and difficult to arouse. Throughout the shift, pt became more alert. Around 3am pt was oriented to self and time though not place. Pt stated not remembering falling and was unsure why she was in the hospital; staff provided support. Lovett cath patent and draining. Pt denies pain. Tele reads Sinus Bradycardia with PACs. Minor abrasions noted on extremities. Pt had no BM. Pt in bed, appears to be resting, call light within reach and bed alarm on. ?
[2025-02-27 06:44] LABS: Chloride* 109 mmol/L (96-114)
[2025-02-27 06:45] LABS: Potassium* 3.2 mmol/L (3.6-5.1); Sodium* 142 mmol/L (135-149)
[2025-02-27 06:47] LABS: Blood Urea Nitrogen* 21 mg/dL (7-30); Creatinine* 0.9 mg/dL (0.5-1.5); Est. Creatinine Clearance* 31.35; Estimated Glomerular Filt Rate 62 ml/min
[2025-02-27 06:48] LABS: Anion Gap 8 mEq/L (7-15); Calcium* 8.5 mg/dL (8.4-10.6); Carbon Dioxide* 25 mmol/L (20-32); Creatine Kinase* 987 U/L (41-117); Glucose* 91 mg/dL (60-115)
--- NOTE | 2025-02-27 07:00 | CT_ITS ---
Patient: HE RAMOS Facility:?[facility] Patient ID:?[id number] Site Patient ID:?[id number]. Site :?[id number] Study:?CT-Head Angio W/ 95CC [id number]/22/2025 11:09:59 AM Ordering Physician:Gypsy Montano Final Report: CT ANGIOGRAM HEAD AND NECK DATE: 02/27/2025. CLINICAL HISTORY: Patient with focal neurological deficits. TECHNIQUE: Standard helical CT image acquisition through the head and neck was performed after intravenous contrast bolus enhancement. 2D and 3D MIP images for post-processing were performed and interpreted on an independent workstation and 3D images were permanently archived. COMPARISON: CT same day. FINDINGS: There is mild narrowing at the origin of the left subclavian artery. The origins of the rest of the great vessels from the aortic arch are patent. The origin of the right vertebral artery is patent. The origin of the left vertebral artery is patent. The common carotid arteries are patent. There is plaque without stenosis at the origin of the right internal carotid artery by NASCET criteria. There is a mild (less than 50%) stenosis at the origin of the left internal carotid artery by NASCET criteria. This is caused by primarily calcified plaque with a greater than 2mm residual lumen. The rest of the cervical segments of the internal carotid arteries are patent up to their intracranial segments. The intracranial segments of the internal carotid arteries are patent. The left vertebral artery is dominant. The cervical segments of the vertebral arteries are patent. The intracranial segments of the vertebral arteries are patent. The middle cerebral arteries demonstrate mild to moderate intracranial atherosclerosis. The anterior cerebral arteries are normal without aneurysm or proximal occlusion identified. The anterior communicating artery is well visualized and appears normal. The basilar artery is normal without aneurysm or occlusion. The posterior cerebral arteries demonstrate mild intracranial atherosclerosis. There is normal opacification of major intracranial venous structures. The visualized lung apices are unremarkable. The thyroid gland is unremarkable. The soft tissues of the neck are unremarkable. There are degenerative changes in the cervical spine. IMPRESSION: 1. No proximal intracranial large vessel occlusion. 2. Intracranial atherosclerosis with mild to moderate narrowing in the distal middle cerebral artery branches bilaterally. 3. Mild (less than 50%) stenosis at the origin of the left internal carotid artery by NASCET criteria. This is caused by primarily calcified plaque with a greater than 2mm residual lumen. 4. Mild narrowing at the origin of the left subclavian artery. Please note that all CT scans at this facility use dose modulation, iterative reconstruction, and/or weight-based dosing when appropriate to reduce radiation dose to as low as reasonably achievable. Dictated by: Keshia Pratt MD @ 02/27/2025 11:24:27 (Electronic Signature)
--- NOTE | 2025-02-27 07:00 | CT_ITS ---
Patient: HE RAMOS Facility:?[facility] Patient ID:?[id number] Site Patient ID:?[id number]. Site :?1935 Study:?CT-Neck Angio Angio W/ 95CC [id number]/22/2025 11:10:02 AM Ordering Physician:Gypsy Montano Final Report: CT ANGIOGRAM HEAD AND NECK DATE: 02/27/2025. CLINICAL HISTORY: Patient with focal neurological deficits. TECHNIQUE: Standard helical CT image acquisition through the head and neck was performed after intravenous contrast bolus enhancement. 2D and 3D MIP images for post-processing were performed and interpreted on an independent workstation and 3D images were permanently archived. COMPARISON: CT same day. FINDINGS: There is mild narrowing at the origin of the left subclavian artery. The origins of the rest of the great vessels from the aortic arch are patent. The origin of the right vertebral artery is patent. The origin of the left vertebral artery is patent. The common carotid arteries are patent. There is plaque without stenosis at the origin of the right internal carotid artery by NASCET criteria. There is a mild (less than 50%) stenosis at the origin of the left internal carotid artery by NASCET criteria. This is caused by primarily calcified plaque with a greater than 2mm residual lumen. The rest of the cervical segments of the internal carotid arteries are patent up to their intracranial segments. The intracranial segments of the internal carotid arteries are patent. The left vertebral artery is dominant. The cervical segments of the vertebral arteries are patent. The intracranial segments of the vertebral arteries are patent. The middle cerebral arteries demonstrate mild to moderate intracranial atherosclerosis. The anterior cerebral arteries are normal without aneurysm or proximal occlusion identified. The anterior communicating artery is well visualized and appears normal. The basilar artery is normal without aneurysm or occlusion. The posterior cerebral arteries demonstrate mild intracranial atherosclerosis. There is normal opacification of major intracranial venous structures. The visualized lung apices are unremarkable. The thyroid gland is unremarkable. The soft tissues of the neck are unremarkable. There are degenerative changes in the cervical spine. IMPRESSION: 1. No proximal intracranial large vessel occlusion. 2. Intracranial atherosclerosis with mild to moderate narrowing in the distal middle cerebral artery branches bilaterally. 3. Mild (less than 50%) stenosis at the origin of the left internal carotid artery by NASCET criteria. This is caused by primarily calcified plaque with a greater than 2mm residual lumen. 4. Mild narrowing at the origin of the left subclavian artery. Please note that all CT scans at this facility use dose modulation, iterative reconstruction, and/or weight-based dosing when appropriate to reduce radiation dose to as low as reasonably achievable. Dictated by: Keshia Pratt MD @ 02/27/2025 11:24:07 (Electronic Signature)
[2025-02-27] MEDS: AMLODIPINE 10 MG TABLET PO (09:06)
--- NOTE | 2025-02-27 09:58 | P.IMPN_ITS ---
Assessment and Plan Assessment and plan (1) Acute ischemic left MCA stroke: Problem comment: -cardioembolic. Telemetry shows NSR. Pending echo result. CTA unremarkable. MR shows left sided basal ganglia dominant CVA with proximal MCA etiology. MR report mentions hemorrhagic component but this is neglibile per stroke neuro -Plavix + aspirin; fluids; OT/PT, Zio patch at discharge. -discharge planning important for recovery. Status: Acute (2) Altered mental status: Problem comment: sounds like she has an independent/normal baseline. flat affect, mild aphasia, slow processing noted post CVA. no significant neuro symptoms (specifically right sided weakness) Status: Acute (3) Rhabdomyolysis: Problem comment: Relatively mild. Due to prolonged laying on the floor downtrending. no VALE. Status: Acute (4) Elevated troponin: Problem comment: Continue to follow. She has electrocardiographic changes as well. technical healthcare consultant and echo. troponin is down trending. Status: Acute (5) Abnormal LFTs (liver function tests): Problem comment: AST greater than ALT Cause uncertain. Patient's daughter thinks that she does not drink but she says he does drink alcohol -monitor Status: Acute (6) Diarrhea: Problem comment: On recent antibiotics for hand cellulitis, Keflex, check for C diff and monitor -formed stool 02/27 Status: Acute (7) Hypothyroidism: Problem comment: -continue synthyroid Status: Acute Subjective Date Seen: 02/27/25 Interval history: Daily Progress Note - #: 2 CC: Altered mental status, acute CVA 24 HOUR UPDATE: Admitted last evening after being found down the day of admission mid afternoon (02/26/25) with AMS, covered in her stool. Best timing is last known well on 02/26 and couldn't be reached the morning of 02/27. Diarrheal illness had begun 5 days prior to admission. pt states she remembers being in the living room and falling and too weak to get up. In ER she had acute urinary retention, hypertensive. 170's/60s. hx of hypertension, hyperlipidemia, hypothyroidism. she takes an aspirin daily. home meds reviewed. CT last night on admission -Asymmetric hypodensity involving the left caudate and internal capsule suspicious for a subacute infarct. No acute hemorrhage or significant mass effect or midline shift. CTA 1. No proximal intracranial large vessel occlusion. 2. Intracranial atherosclerosis with mild to moderate narrowing in the distal middle cerebral artery branches bilaterally. 3. Mild (less than 50%) stenosis at the origin of the left internal carotid artery by NASCET criteria. This is caused by primarily calcified plaque with a greater than 2mm residual lumen. 4. Mild narrowing at the origin of the left subclavian artery. MR brain 1. Multiple patchy areas of acute infarction in the left MCA distribution involving left basal ganglia, insula and posterolateral temporal lobe. 2. Redemonstration of subacute infarct in the left lentiform with small focus of hemorrhage. From an acute mental status change the patient has improved greatly. She is interactive, can give me some history. She seems to have be having some mild word-finding issues. Notable Labs, Micro, Rads, Interventions: 146/59. Pulse 73. Rest per 16. Afebrile. 95% on room air. White blood cell count has decreased from 12-9.5. Potassium is a little bit low at 3.2. A1c 6.1. Renal function is normal. CK has gone down from 1979 down to 987 Troponin shows mild demand ischemia with troponin is down trending LDL 147 Normal TSH Objective: alert, flat affect, mild asphasia. Knew my name after my second return to room today. Vitals: see above Lungs: Clear. Cardiac: S1S2. Neuro: no tremor. no significant right sided effects. Disposition/Potential discharge - Today I spent 50minutes seeing the patient, reviewing Expanse and EPIC notes/diagnostics, discussing the care plan with our care time that includes social work, PT/OT, pharmacy, RT, half-way and documenting my impressions and plan in the medical record. Exam Const: Vital Signs, click to edit/add: Vital Signs - 24 hr 02/26/25 14:48 02/26/25 19:24 02/26/25 20:15 Temperature 97.7 F 98.6 F 97.7 F Pulse Rate Pulse Rate [Pulse Oximeter] 63 50 L 62 Respiratory Rate 16 18 18 Blood Pressure [Ri ght Arm] 170/74 H Blood Pressure [Ri ght Upper Arm] 148/69 H 130/49 L Pulse Oximetry 94 93 94 Oxygen Delivery Me thod Room Air Room Air Room Air 02/26/25 20:15 02/26/25 22:46 02/26/25 23:00 Temperature Pulse Rate 53 L Pulse Rate [Pulse Oximeter] 60 Respiratory Rate 18 18 Blood Pressure [Ri ght Arm] Blood Pressure [Ri ght Upper Arm] Pulse Oximetry 94 Oxygen Delivery Me thod Room Air 02/26/25 23:14 02/27/25 03:26 02/27/25 08:00 Temperature 98.3 F 98.2 F 97.4 F L Pulse Rate Pulse Rate [Pulse Oximeter] 60 57 L 58 L Respiratory Rate 18 16 16 Blood Pressure [Ri ght Arm] 177/61 H 142/48 H 164/66 H Blood Pressure [Ri ght Upper Arm] Pulse Oximetry 98 97 97 Oxygen Delivery Me thod Room Air Room Air Labs Labs: Laboratory Results - last 24 hr 02/26/25 02/26/25 02/26/25 15:56 18:04 18:30 WBC 12.07 H RBC 4.94 Hgb 13.8 Hct 43.2 MCV 87 MCH 28 MCHC 32 RDW Coeff of Ascencion 15.0 Plt Count 329 Neut % (Auto) 79.7 H Lymph % (Auto) 9.8 L [place] % (Auto) 9.1 Eos % (Auto) 0.1 Baso % (Auto) 0.1 Neut # (Auto) 9.60 H Lymph # (Auto) 1.20 [place] # (Auto) 1.10 H Eos # (Auto) 0.00 Baso # (Auto) 0.00 Abs Immat Gran (auto) 0.10 Imm/Tot Granulo (auto) 1.2 Sodium 143 Potassium 4.0 Chloride 105 Carbon Dioxide 24 Anion Gap 14 BUN 30 Creatinine 1.0 Estimated Creat Clear 31.35 Estimated GFR 55 Glucose 132 H Lactate 1.9 Calcium 9.4 Magnesium 2.3 Total Bilirubin 1.9 H AST 100 H ALT 39 H Alkaline Phosphatase 87 Total Creatine Kinase 1979 H Troponin I 0.09 H* 0.09 H* NT-Pro-B Natriuret Pep 1630 H Total Protein 7.5 Albumin 4.2 Procalcitonin 0.07 TSH 0.992 Urine Color Yellow Urine Appearance Clear Urine pH 5.5 Ur Specific [place] 1.025 Urine Protein 2+ A Urine Glucose (UA) Negative Urine Ketones 1+ A Urine Blood 2+ A Urine Nitrite Negative Urine Bilirubin Negative Urine Urobilinogen 0.2 Ur Leukocyte Esterase Negative Urine RBC 0-2 Urine WBC 0-2 Ur Squamous Epith Cells Few Urine Bacteria None SARS-CoV-2 (PCR) Negative SARS-CoV-2 Influenza Type A (PCR) Negative PCR FLU A Influenza Type B (PCR) Negative PCR FLU B RSV (PCR) Negative PCR RSV Lab Acknowledgement 02/26/25 02/26/25 02/27/25 21:49 22:09 06:05 WBC 9.54 RBC 4.20 Hgb 12.0 Hct 37.3 MCV 89 MCH 29 MCHC 32 RDW Coeff of Ascencion 15.3 Plt Count 276 Neut % (Auto) 67.1 Lymph % (Auto) 19.1 L [place] % (Auto) 8.6 Eos % (Auto) 4.5 Baso % (Auto) 0.5 Neut # (Auto) 6.40 Lymph # (Auto) 1.80 [place] # (Auto) 0.80 Eos # (Auto) 0.43 Baso # (Auto) 0.05 Abs Immat Gran (auto) 0.02 Imm/Tot Granulo (auto) 0.2 Sodium 142 Potassium 3.2 L Chloride 109 Carbon Dioxide 25 Anion Gap 8 BUN 21 Creatinine 0.9 Estimated Creat Clear 31.35 Estimated GFR 62 Glucose 91 Lactate Calcium 8.5 Magnesium Total Bilirubin AST ALT Alkaline Phosphatase Total Creatine Kinase 987 H Troponin I 0.07 H* NT-Pro-B Natriuret Pep Total Protein Albumin Procalcitonin TSH Urine Color Urine Appearance Urine pH Ur Specific [place] Urine Protein Urine Glucose (UA) Urine Ketones Urine Blood Urine Nitrite Urine Bilirubin Urine Urobilinogen Ur Leukocyte Esterase Urine RBC Urine WBC Ur Squamous Epith Cells Urine Bacteria SARS-CoV-2 (PCR) Influenza Type A (PCR) Influenza Type B (PCR) RSV (PCR) Lab Acknowledgement Test Added Test Added
[2025-02-27 10:28] LABS: Cholesterol* 231 mg/dL (90-199); HDL Cholesterol* 46 mg/dL (>=50); Triglycerides* 190 mg/dL (40-149)
[2025-02-27 12:24] LABS: C.Difficile Negative (Negative); CDIFFEPI 027 PRESUMPTIVE NEGATIVE (Negative)
[2025-02-27] MEDS: PERFLUTREN LIPID MICROSPHERES 2 ML VIAL IVP (13:35)
--- NOTE | 2025-02-27 14:21 | W.PC.NUTR.NO ---
Nutrition Progress Note Progress Note Progress Note: RDN with MD consult for nutrition consult and positive skin risk score. Patient admitted for being found down at home and unable to get up due to weakness. She presented here with altered mental status, found to have acute CVA. Medical history includes hypertension and hyperlipidemia. Current weight 71.622 kg (no weight history in chart); height 157.48 cm; BMI 28.9 kg/2. Current diet is Regular. Meal intakes since admit was x1 @ 75%. RDN attempted to visit with patient x3, however patient not available. RDN will attempt to visit at later date. Continue to monitor.
--- NOTE | 2025-02-27 14:21 | REH.PT ---
PT orders to evaluate and treat on hold. New orders from MD for strict bedrest following MRI Stroke findings. Will check status tomorrow.
--- NOTE | 2025-02-27 14:23 | PC.SOCIAL ---
Addendum entered and electronically signed by Eileen Peguero LCSW 02/27/25 16:03: SW was contacted by Alfonso with APS who states a new report was made and he would like an update. SW informed him that right now they are doing tests to determine if patient had a stroke. SW informed that patient was very confused when she admitted, but this has cleared up some. SW provided an update in the afternoon confirming that patient had a stroke and that right now discharge planning is on hold until PT can evaluate. Alfonso's email is [email or web address] and number is [phone]. Addendum entered and electronically signed by Eileen Peguero LCSW 02/27/25 15:13: Daughter, Jessica, emailed SW and informed that top choice would be [facility] and asked when a referral would be sent or who would call. SW responded and let them know that when recommendations from PT are in, then SW will send the referral. SW also explained that daughters should look into a couple other options to send referrals to in the case that [facility] has no availability. SW called Jessica and informed that PT will not be assessing today due to bedrest restriction now in place. Jessica asked for an update from RN or provider and CATHY informed she would let them know, and explained that SW did not know when they would be calling her. Original Note: Discharge planning: CATHY spoke with patient's daughters about patient being recommended at this time by OT for TCU and that we are waiting for the PT assessment as patient has had a lot of different consults today so they haven't seen her yet, but will soon. Patient's daughters had questions about insurance coverage for TCU. SW explained patient's insurance and that she would need a prior authorization for insurance to approve the stay which is completed by the facility. SW also discussed that typically there is a copay starting on day 21 and once a facility is chosen they can run patient's insurance to inform us of what that copay would be. Daughters expressed understanding. SW discussed that they should start thinking about where they would like referrals sent once we have the PT recommendation. CATHY emailed the list of [facility] and Medicare's website where they can search for TCU's by zipcode/city. Jessica's email is and Raquels is . SW did let the daughter's know that sometimes the prior auth can take a day to come back, so even if patient was medically cleared on 02/28, she may need to stay longer due to the prior auth. Daughters expressed understanding. Daughters had no other questions or concerns at this time. SW did not meet with patient yet to have discussions around TCU, as PT hasn't been able to evaluate yet, and patient has had many different consultations and tests done today. SW to continue to support with discharge planning.
[2025-02-27] MEDS: ASPIRIN 81 MG TAB.CHEW PO (16:16)
[2025-02-27] MEDS: CLOPIDOGREL 75 MG TABLET PO (16:16)
[2025-02-27] MEDS: ACETAMINOPHEN 325 MG TABLET 650 MG PO (18:39)
--- NOTE | 2025-02-27 19:03 | PC.NURSE ---
End of Shift: Patient pleasant and cooperative, A&O this shift besides unsure of day of week. VSS, afebrile. Some aphasia noted. Lovett removed with tip intact. Pt reports pain in her back this afternoon, managed with PRN medication, see JUL. - with walker and gait belt.
[2025-02-27] MEDS: ATORVASTATIN CALCIUM 40 MG TABLET 80 MG PO (20:50)
[2025-02-27] MEDS: SODIUM CHLORIDE 0.9 % (FLUSH) 10 ML SYRINGE 5 ML IVF (20:51)
[2025-02-27] MEDS: METOPROLOL TARTRATE 1 MG/ML inj 5 MG IVP ×2 (22:35→23:37)
--- NOTE | 2025-02-27 22:42 | W.PM.CROSSCO ---
Subjective Subjective Time Seen by Provider: 22:42 Date Seen: 02/27/25 Interval history: 89-year-old with stroke flipped into AFib with RVR this evening. She was suspected to have AFib based on her stroke. Heart rate now in the 130-150 range. She is probably having some to chest discomfort with this. Blood pressure in the 150s over 80s so I am using metoprolol for rate control. Magnesium adequate. Potassium is low so it will be replaced. Objective Objective Data Details: She is alert appears in no distress. Cardiac rapid and irregular. Good perfusion.
[2025-02-27] MEDS: POTASSIUM BICARB 25 MEQ EFFERVESCENT TAB PO (22:52)
[2025-02-27] MEDS: POTASSIUM CHLORIDE 10 MEQ/100 ML PIGGYBACK 100 MEQ IVPB (22:52)
[2025-02-27] MEDS: METOPROLOL TARTRATE 25 MG TABLET PO (23:04)
[2025-02-28] VITALS (9 sets, daily range): BP systolic 103–152; BP diastolic 57–75; PULSE 48–120; RESP 14–26; TEMP 36.6–37; O2SAT 93–98; BMI 29.1
[2025-02-28] MEDS: LACTATED RINGERS 1000 ML 1,000 ML 125 ML IV (00:11)
[2025-02-28] MEDS: POTASSIUM BICARB 25 MEQ EFFERVESCENT TAB PO ×3 (00:29→15:45)
--- NOTE | 2025-02-28 00:37 | PC.NURSE ---
Dr. Gonzales attempted to update daughters listed on patient chart, no answer. Dr. Gonazles has given parameters for HR: ok for HR to be 110-120's, may briefly have increases to 130's/140's as long as heart rate comes back down to 110-120 range. Scheduled Metoprolol to manage.
[2025-02-28] MEDS: LEVOTHYROXINE 88 MCG TABLET PO (06:20)
--- NOTE | 2025-02-28 06:46 | PC.NURSE ---
End of shift: Pt pleasant, alert and oriented.? Around 2300 pt flipped into Afib with MD jayden (Gonzales) notified, see mar for medication regimen. Pt stated some chest pain during this time, denied SOB. At 0135 pt converted into sinus bradycardia/sinus arrhythmia, maintained the rest of the shift. Otherwise, VSS. Pt moves via 1a, tolerated well. Took pills whole, tolerated well. Pt in bed, appears to be resting, call light within reach. ?
[2025-02-28 06:55] LABS: Hematocrit* 32.8 % (33.0-51.0); Hemoglobin* 10.5 gm/dL (12.0-16.0); Immature Granulocytes Abs Auto 0.04 K/uL (0.00-0.30); Immature Granulocytes Pct Auto 0.4 %; Lymphocytes Absolute Auto 2.21 K/uL (0.90-2.90); Mean Corpuscular HGB Conc 32 gm/dL (32-36); Mean Corpuscular Hemoglobin 29 pg (26-34); Mean Corpuscular Volume 89 fL (80-100); RDW Coefficient of Variation % 15.1 % (11.5-15.5); Red Blood Count* 3.69 m/uL (4.00-5.20); White Blood Count* 9.28 K/uL (4.50-11.00)
[2025-02-28 07:02] LABS: Slide Review Reflex No
[2025-02-28 07:06] LABS: Albumin* 2.8 g/dL (3.3-5.0); Chloride* 105 mmol/L (96-114); Potassium* 3.3 mmol/L (3.6-5.1); Sodium* 137 mmol/L (135-149)
[2025-02-28 07:09] LABS: Alanine Aminotransferase* 28 U/L (4-35); Alkaline Phosphatase* 62 U/L (40-150); Anion Gap 4 mEq/L (7-15); Aspartate Amino Transferase* 50 U/L (12-35); Bilirubin Direct* 0.2 mg/dL (0.0-0.5); Bilirubin Total* 1.3 mg/dL (0.1-1.5); Blood Urea Nitrogen* 19 mg/dL (7-30); Calcium* 8.0 mg/dL (8.4-10.6); Carbon Dioxide* 28 mmol/L (20-32); Creatine Kinase* 398 U/L (41-117); Creatinine* 0.8 mg/dL (0.5-1.5); Est. Creatinine Clearance* 31.35; Estimated Glomerular Filt Rate 71 ml/min; Glucose* 94 mg/dL (60-115); Total Protein* 5.4 g/dL (6.0-8.3)
[2025-02-28] MEDS: 0.9 % SODIUM CH + KCL 20 mEq/L 1,000 ML 125 ML IV (09:28)
[2025-02-28] MEDS: ASPIRIN 81 MG TAB.CHEW PO (09:29)
[2025-02-28] MEDS: APIXABAN 5 MG TABLET 2.5 MG PO ×2 (09:29→20:50)
[2025-02-28] MEDS: CARBOXYMETHYLCELLULOSE (REFRESH PLUS) TEARS 1 DROP EYE-BOTH (10:16)
--- NOTE | 2025-02-28 10:40 | W.PC.NUTR.HO ---
Hospital Nutrition Assessment Patient Data Patient Gender: Female Patient Age: 89 Height: 5 ft 2 in Weight: 159 lb 4.8 oz Body Mass Index: 29.1 Usual Body Weight: 160 lb Weight Calculations [place] Body Weight (lbs): 110.00 [place] Body Weight (kg): 49.90 Percent of [place] Body Weight: 145 Adjusted Body Weight (lbs): 122.33 Adjusted Body Weight (kg): 55.49 Percent of Usual Body Weight: 100 Basal Energy Expenditure (BEE): 1230.62 Basal Energy Expenditure (BEE) Adjusted Weight: 1070.28 Activity/Stress Factors Injury Factor/Activity Factor Value: 1.2 Total Energy Requirements Kcal requirements (current wt): 1476.744 Kcal requirements (adj wt): 1284.336 Protein Need (current wt): 1.0 Total Protein (current wt): 72.257 Protein Need (adj wt): 1.0 Total Protein (adj wt): 55.490 Fluid Need (current wt): 27 Total Fluid (current wt): 1950.946 Fluid Need (adj wt): 27 Total Fluid (adj wt): 1498.23 Nutrition Assessment Diet Order: Regular Food Modified for Dysphagia: 7-Regular Liquid Modified for Dysphagia: 0-Thin Allergies: NKFA Appetite Prior to Admission: Fair Appetite and Intake: 02/27/25: 75% at breakfast, 0% at lunch, 100% at supper Hx Appetite Changes: Yes (Decreased appetite ~ 1 week and oral intakes for ~3 days. ) Hx Weight Loss: No (No weight hx available to review at this time. Pt reports a UBW of ~160lbs.) Hx Weight Gain: No (No weight hx available to review at this time. Pt reports a UBW of ~160lbs.) Nausea: No Vomiting: No Duration of Nausea/Vomiting: None Diarrhea: Yes Duration of Diarrhea: 3-7 days (Patient reports diarrhea is now improved. ) Hx Constipation: No Pressure Ulcer: No Diagnosis/Symptom or Procedure: Acute ischemic left MCA and Atrial fibrillation with RVR Clinical History: Medical history includes, but not limited to weakness, rhabdomyolysis, elevated troponin, abnormal LFTs, dehydration, diarrhea (on recent antibiotics for hand cellulitis), altered mental status, hyperlipidemia, hypertension, and hypothyroid. Current Living Situation: Lives independently at [facility]. Medications Medications: Reviewed. Lab Results Lab Results: Reviewed. Assessment/Plan PES Statement: Inadequate oral intakes related to decreased appetite and diarrheal illness as evidenced by patient report of decreased appetite for ~1 week and oral intakes for ~ 3 days prior to admission. Nutritional Assessment Summary: RDN with nutrition screen for MD consult and positive skin risk. RDN visited with patient in room on this day. Patient reports a fair appetite and notes a decreased appetite for ~1 week prior to admission. Patient reports minimal oral intakes for ~3 days prior to admission related to diarrhea. Prior to this, patient was eating normally with 2 meals/day and snacks prn. Patient reports doing the cooking and grocery shopping prior to admission. Per MD note, patient had formed stool 02/27/25. Patient reports diarrhea improved at this time. Diarrhea possibly related to recent antibiotic use. Per trust accounts supervisor, patient ate 75% at breakfast, 0% at lunch, and 100% at supper yesterday. Patient reports eating an namibian muffin with jelly, cream of wheat, water, and coffee for breakfast this morning. Patient declined nutrition supplements and/or scheduled snacks. RDN encouraged patient to utilize unit kitchen for snacks as she desires. No weight history available to review at this time. Patient reports a UBW of ~160lbs. No significant weight changes noted at this time. RDN will continue to follow weight trends during hospitalization. Goals: Adequate oral intakes of 75%+ at meals and snacks. No s/s of dehydration. Plan/Recommendation: Regular diet, per MD order and DELIVERY AND INSTALLATION SUBCONTRACTOR. RDN will continue to monitor and follow-up prn.
[2025-02-28] MEDS: METOPROLOL TARTRATE 25 MG TABLET 12.5 MG PO ×3 (10:50→20:54)
--- NOTE | 2025-02-28 13:00 | P.IMPN_ITS ---
Assessment and Plan Assessment and plan (1) Acute ischemic left MCA stroke: Problem comment: -cardioembolic. Telemetry shows NSR. Pending echo result. CTA unremarkable. MR shows left sided basal ganglia dominant CVA with proximal MCA etiology. MR report mentions hemorrhagic component but this is neglibile per stroke neuro -Plavix + aspirin; fluids; OT/PT, Zio patch at discharge. -holding plavix on 02/28 as we are starting eliquis Status: Acute (2) Atrial fibrillation with RVR: Problem comment: metoprolol 12.5mg q4 hours prn to assess need for rate control. pt does not seem to be symptomatic with the elevated heart rate. eliquis for VTE protection. d/c plavix. Status: Acute (3) PAF (paroxysmal atrial fibrillation): Problem comment: eliquis started 02/28 metoprolol for rate control - as this is a new dx we are monitoring the dose of the beta margarita needed. Status: Acute (4) Altered mental status: Problem comment: sounds like she has an independent/normal baseline. flat affect, mild aphasia, slow processing noted post CVA. no significant neuro symptoms (specifically right sided weakness) Status: Acute (5) Rhabdomyolysis: Problem comment: Relatively mild. Due to prolonged laying on the floor downtrending. no VALE. Status: Acute (6) Elevated troponin: Problem comment: Continue to follow. She has electrocardiographic changes as well. monitoring specialist and echo. troponin is down trending. Status: Acute (7) Abnormal LFTs (liver function tests): Problem comment: AST greater than ALT Cause uncertain. Patient's daughter thinks that she does not drink but she says he does drink alcohol -monitor Status: Acute (8) Diarrhea: Problem comment: On recent antibiotics for hand cellulitis, Keflex, check for C diff and monitor -formed stool 02/27 Status: Acute (9) Hypothyroidism: Problem comment: -continue synthyroid Status: Acute Subjective Date Seen: 02/28/25 Interval history: Daily Progress Note - Hospital Medicine #: 3 CC: Altered mental status, acute CVA - now with AFIB/RVR 24 HOUR UPDATE: Stroke neuro eval 02/27 afternoon. Likely cardioembolic. Pt developed AFIB/RVR overnight. amlodipine on hold, lisinopril on hold started plavix/asp combo 02/27 w/new AFIB - started eliquis and metoprolol Feeling just ok today; tired. MR brain 1. Multiple patchy areas of acute infarction in the left MCA distribution involving left basal ganglia, insula and posterolateral temporal lobe. 2. Redemonstration of subacute infarct in the left lentiform with small focus of hemorrhage. From an acute mental status change the patient has improved greatly. She is interactive, can give me some history. She seems to have be having some mild word-finding issues. Notable Labs, Micro, Rads, Interventions: 141/63, 103/72. rate 50's or 120's. RR 16. Afebrile. 95% on room air. White blood cell count has decreased from 12-9.5. Potassium is a little bit low at 3.2. A1c 6.1. Renal function is normal. CK downtrending Troponin shows mild demand ischemia and is down trending LDL 147 Normal TSH Objective: alert, flat affect, mild asphasia. remembered me today. Vitals: see above Lungs: Clear. Cardiac: S1S2. irregular; 90's on my exam. Neuro: no tremor. no significant right sided effects. Disposition/Potential discharge - TCU near daughters Today I spent 50minutes seeing the patient, reviewing Expanse and EPIC n otes/diagnostics, discussing the care plan with our care time that includes social work, PT/OT, pharmacy, RT, nursing home and documenting my impressions and plan in the medical record. Exam Const: Vital Signs, click to edit/add: Vital Signs - 24 hr 02/27/25 15:00 02/27/25 15:00 02/27/25 15:45 Temperature 97.8 F Pulse Rate 60 Pulse Rate [Pulse Oximeter] 51 L 51 L Respiratory Rate 18 18 Blood Pressure [Le ft Arm] Blood Pressure [Ri ght Arm] 132/75 Pulse Oximetry 96 Oxygen Delivery Me thod Room Air 02/27/25 20:32 02/27/25 22:12 02/27/25 22:32 Temperature 98.2 F 98.0 F Pulse Rate Pulse Rate [Pulse Oximeter] 58 L 75 126 H Respiratory Rate 18 18 Blood Pressure [Le ft Arm] Blood Pressure [Ri ght Arm] 126/51 L 138/93 H 156/64 H Pulse Oximetry 95 96 94 Oxygen Delivery Me thod Room Air Room Air 02/27/25 23:00 02/27/25 23:00 02/28/25 01:53 Temperature Pulse Rate 118 H 48 L Pulse Rate [Pulse Oximeter] 126 H Respiratory Rate 18 Blood Pressure [Le ft Arm] Blood Pressure [Ri ght Arm] Pulse Oximetry Oxygen Delivery Me thod 02/28/25 03:00 02/28/25 07:00 02/28/25 07:00 Temperature 98.3 F 97.9 F Pulse Rate Pulse Rate [Pulse Oximeter] 54 L 52 L 52 L Respiratory Rate 14 14 26 H Blood Pressure [Le ft Arm] 141/63 H Blood Pressure [Ri ght Arm] 127/57 L Pulse Oximetry 98 94 Oxygen Delivery Me thod Room Air Room Air 02/28/25 10:58 Temperature 98.2 F Pulse Rate Pulse Rate [Pulse Oximeter] 120 H Respiratory Rate 20 Blood Pressure [Le ft Arm] Blood Pressure [Ri ght Arm] 103/72 Pulse Oximetry 98 Oxygen Delivery Me thod Room Air Labs Labs: Laboratory Results - last 24 hr 02/28/25 05:55 WBC 9.28 RBC 3.69 L Hgb 10.5 L Hct 32.8 L MCV 89 MCH 29 MCHC 32 RDW Coeff of Ascencion 15.1 Plt Count 241 Neut % (Auto) 58.3 Lymph % (Auto) 23.8 [place] % (Auto) 10.6 Eos % (Auto) 6.3 Baso % (Auto) 0.6 Neut # (Auto) 5.41 Lymph # (Auto) 2.21 [place] # (Auto) 1.00 H Eos # (Auto) 0.58 H Baso # (Auto) 0.06 Abs Immat Gran (auto) 0.04 Imm/Tot Granulo (auto) 0.4 Sodium 137 Potassium 3.3 L Chloride 105 Carbon Dioxide 28 Anion Gap 4 L BUN 19 Creatinine 0.8 Estimated Creat Clear 31.35 Estimated GFR 71 Glucose 94 Calcium 8.0 L Magnesium 1.7 Total Bilirubin 1.3 Direct Bilirubin 0.2 AST 50 H ALT 28 Alkaline Phosphatase 62 Total Creatine Kinase 398 H Troponin I 0.06 H* Total Protein 5.4 L Albumin 2.8 L
--- NOTE | 2025-02-28 14:18 | PC.SOCIAL ---
Met with pt., her daughters Lindsay at [phone] and Jessica at [phone] to go over discharge plans. Family prefers placement at the following facilities: 1. [facility]- They have an opening and a referral has been sent. 2. [facility]-They have an opening and a referral has been sent. 3. [facility]- They have an opening but no referral has been sent yet as this is families third choice. Family requested that advanced care planning be discussed with pt. as pt. Pt. was open to filling out a Health Care Directive today but seemed overwhelmed by the long form, so a short-form Health Care Directive was filled out along with a POLST. Copies were made and are in patients chart. Pt. will likely be ready for discharge tomorrow awaiting facility acceptance and insurance authorization. A [place] medical assistance application was e-mailed to pt.'s daughter Jsesica to fill out as pt. will not be returning home due to increased needs. Answered questions on how to fill out the application. Family is planning on having pt. stay at the SNF she discharges to or may look for an assisted living near her daughters after she completes her rehab.
[2025-02-28] MEDS: LOPERAMIDE HCL 2 MG CAPSULE PO (17:54)
[2025-02-28] MEDS: ATORVASTATIN CALCIUM 40 MG TABLET 80 MG PO (20:48)
[2025-02-28] MEDS: SODIUM CHLORIDE 0.9 % (FLUSH) 10 ML SYRINGE 5 ML IVF (20:51)
--- NOTE | 2025-02-28 22:51 | PC.NURSE ---
Shift note: The pt has been alert and oriented x4; appeared forgetful. Denied chest pain and short of breath. Spo2 has been in the 90s in RA. The pt had diarrhea ; MD Gonzales was notified; an order for Loperamide was received and given. The pt has been up to BR with 1-assist . Mild aphasia noted
[2025-03-01 01:44] VITALS: BP 132/59; PULSE 54; RESP 18; TEMP 36.8; O2SAT 93
[2025-03-01] MEDS: 0.9 % SODIUM CH + KCL 20 mEq/L 1,000 ML 125 ML IV (01:52)
[2025-03-01 06:35] LABS: Hematocrit* 33.2 % (33.0-51.0); Hemoglobin* 10.5 gm/dL (12.0-16.0); Immature Granulocytes Abs Auto 0.05 K/uL (0.00-0.30); Immature Granulocytes Pct Auto 0.7 %; Lymphocytes Absolute Auto 2.29 K/uL (0.90-2.90); Mean Corpuscular HGB Conc 32 gm/dL (32-36); Mean Corpuscular Hemoglobin 28 pg (26-34); Mean Corpuscular Volume 90 fL (80-100); RDW Coefficient of Variation % 15.1 % (11.5-15.5); Red Blood Count* 3.70 m/uL (4.00-5.20); White Blood Count* 7.30 K/uL (4.50-11.00)
[2025-03-01 06:42] LABS: Slide Review Reflex No
[2025-03-01] MEDS: LEVOTHYROXINE 88 MCG TABLET PO (06:43)
[2025-03-01 06:53] LABS: Chloride* 106 mmol/L (96-114); Potassium* 3.7 mmol/L (3.6-5.1); Sodium* 139 mmol/L (135-149)
[2025-03-01 06:56] LABS: Blood Urea Nitrogen* 11 mg/dL (7-30); Creatinine* 0.8 mg/dL (0.5-1.5); Est. Creatinine Clearance* 31.35; Estimated Glomerular Filt Rate 71 ml/min
[2025-03-01 06:57] LABS: Anion Gap 5 mEq/L (7-15); Calcium* 8.1 mg/dL (8.4-10.6); Carbon Dioxide* 28 mmol/L (20-32); Glucose* 90 mg/dL (60-115)
[2025-03-01 07:00] VITALS: BP 155/60; PULSE 55; PULSE 61; RESP 16; O2SAT 96
--- NOTE | 2025-03-01 08:11 | PC.NURSE ---
shift note: Pt. alert to self; forgetful. Pt. has slight swelling L arm, warm blanket and elevated. R IV access patent, no redness, swelling, or coolness. Pt. tolerating liquids. HOB is 40 degrees.
--- NOTE | 2025-03-01 08:16 | PC.SOCIAL ---
[facility] has a shared room for patient and are getting insurance authorization. [facility] in [place] has a prive room and is also assessing. Family is deciding today and which facility.
[2025-03-01] MEDS: APIXABAN 5 MG TABLET 2.5 MG PO (09:14)
[2025-03-01] MEDS: ASPIRIN 81 MG TAB.CHEW PO (09:14)
[2025-03-01] MEDS: SODIUM CHLORIDE 0.9 % (FLUSH) 10 ML SYRINGE 5 ML IVF (09:15)
[2025-03-01 12:53] VITALS: BP 165/71; PULSE 60; RESP 16; TEMP 36.8; O2SAT 96
--- NOTE | 2025-03-01 13:51 | PC.SOCIAL ---
Pt. has been accepted to [facility] for rehab. Pt.'s daughters will transport. PAS completed #[id number]. Pt. completed a new POLST today and changed her status to DNR/DNI, comfort care.
--- NOTE | 2025-03-01 14:13 | P.DS_ITS ---
DS: Providers Provider Date Seen: 03/01/25 Date of admission: 02/26/25 22:09 Primary care physician: Not a Local Provider Admitting Clinician: Dusty Gonzales MD Consults: 02/26/25 22:09 Consult to Nutrition [CONS] Routine Comment: Reason for consult:: Nutritional Consult Consult to Occupational Therapy [CONS] Routine Comment: Reason(s) for OT Consult:: Evaluate and Treat Any Restrictions?:: No Restrictions Consult to Physical Therapy [CONS] Routine Comment: Reason(s) for PT Consult:: Evaluate and Treat Any Restrictions?:: No Restrictions Consult to Burning Plant Operator [CONS] Routine Comment: Reason for Consult:: Discharge Planning Needs 02/27/25 09:16 Consult to Speech Therapy [CONS] Routine Comment: Reason(s) for Speech Consult:: Speech/Swallowing Eval Comment: coughed after taking pills 02/27/25 15:21 Consult to Occupational Therapy [CONS] PROTOCOL Comment: Reason(s) for OT Consult:: Evaluate and Treat Any Restrictions?:: No Restrictions Comment: left MCA stroke. slow processing; mild aphasia. Attending Physician on discharge: Marylu Vilchis MD [facility] Date of Discharge: 03/01/25 DS: Diagnosis Discharge Diagnosis (1) Acute ischemic left MCA stroke: Status: Acute Problem details: -cardioembolic. Telemetry shows NSR. Pending echo result. CTA unremarkable. MR shows left sided basal ganglia dominant CVA with proximal MCA etiology. MR report mentions hemorrhagic component but this is neglibile per stroke neuro -initially; DAPT but when AFIB developed - we stopped both and started Eliquis. Cards and Neuro agreed. (2) Atrial fibrillation with RVR: Status: Acute Problem details: metoprolol 12.5mg q4 hours prn to assess need for rate control. pt does not seem to be symptomatic with the elevated heart rate. eliquis for VTE protection. d/c plavix. (3) PAF (paroxysmal atrial fibrillation): Status: Acute Problem details: eliquis started 02/28 metoprolol 12.5 BID -ultimately lisinopril was dose reduced to 20mg from 40mg and amlodipine was held. -see notes under demand ischemia for ST changes in AFIB (4) Demand ischemia: Status: Acute Problem details: -we noted a brief elevation in her troponin on arrival - felt secondary to demand ischemia -we also noted when she is in AFIB/RVR that she get's impressive lateral wall ischemia (ST depression) that resolves when she is in sinus -this is asymptomatic; discussed with cards. they feel this is stress test and given her age and care goals - likely no further workup needed. (5) Altered mental status: Status: Acute Problem details: sounds like she has an independent/normal baseline. flat affect, mild aphasia, slow processing noted post CVA. no significant neuro symptoms (specifically right sided weakness) (6) Rhabdomyolysis: Status: Acute Problem details: Relatively mild. Due to prolonged laying on the floor downtrending. no VALE. (7) Elevated troponin: Status: Acute Problem details: Continue to follow. She has electrocardiographic changes as well. photo checker and echo. troponin is down trending. (8) Hypothyroidism: Status: Acute Problem details: -continue synthyroid DS: Summary Hospital Course Hospital Course: BRIEF HOSPITAL COURSE: Patient was admitted for four days. Synopsis of acute inpatient issues are outlined above. Chronic medical conditions with notable findings outlined above. Susy was found down in her home. It is unclear what caused her fall or how long she had been down. She did have a mild rhabdo. No VALE. Ultimately she was diagnosed with a proximal left MCA ischemic infarct. This is considered to be cardioembolic. She did developed AFib with RVR during this hospitalization. Her echo was reassuring from an EF and wall motion abnormality review. So initially she was on Plavix and aspirin but then when the AFib developed she was switched to Eliquis. Both neuro and Cardiology did not see a benefit of being on anti-platelet therapy while receiving full anticoagulation. Her rate is not difficult to control, however when her rate is greater than 120 we did see some demand ischemia in the lateral leads. Resolves as soon as she flips out AFib. I discussed this with Cardiology and they felt like this was passing a stress testing given her age, normal echo and care goals no further investigations would be pursued. Ultimately we started metoprolol at 12.5 mg b.i.d., we decreased her lisinopril from 40-20 mg and we discontinued her amlodipine. DISCHARGE MEDICATIONS: See Reconciled list Specific instructions to the patient and follow-up are outlined below. REVIEW OF SYSTEMS No new chest pain or dyspnea Pain controlled No voiding difficulties Tolerating diet challenge PHYSICAL EXAM: CONSTITUTIONAL: A/O. Knows setting and context. Somewhat of a flat affect. GENERAL: Well-developed at ideal body weight, in no respiratory distress. VITAL SIGNS: see record. HEENT: Sclerae are anicteric. No petechiae. CARDIAC: rhythm is regular. There is no S3 or rub. No harsh murmurs. Extremities show trace edema with symmetrical pulses. PULM: good air entry with no wheeze. NEURO: Speech reveals mild aphasia. Somewhat of a lack of initiative for movem ent. Flat affect. No asymmetry in her exam. SKIN: No rashes, petechiae, concerning changes PSYCHIATRIC: Euthymic. DISPOSITION: Tcu, post stroke cares. Time spent on discharge 37 minutes. Status at Discharge Functional status at discharge: uses cane/walker Overall status at discharge: patient is progressing back to baseline Time Spent with Patient Time attestation: Total time spent providing and/or coordinating discharge services: Time spent: Greater than 30 minutes Exam Const: Vital Signs, click to edit/add: Vital Signs - 24 hr 02/28/25 15:40 02/28/25 15:40 02/28/25 22:00 Temperature 98.2 F 98.1 F Pulse Rate Pulse Rate [Pulse Oximeter] 66 66 82 Respiratory Rate 20 20 20 Blood Pressure [Le ft Arm] 144/62 H 152/75 H Pulse Oximetry 95 96 Oxygen Delivery Me thod Room Air Room Air 02/28/25 23:00 02/28/25 23:00 02/28/25 23:24 Temperature 98.6 F Pulse Rate 55 L Pulse Rate [Pulse Oximeter] 61 61 Respiratory Rate 18 18 Blood Pressure [Le ft Arm] 150/60 H Pulse Oximetry 93 Oxygen Delivery De thod Room Air 03/01/25 01:44 03/01/25 07:00 03/01/25 07:00 Temperature 98.3 F Pulse Rate 61 Pulse Rate [Pulse Oximeter] 54 L 55 L Respiratory Rate 18 16 Blood Pressure [Le ft Arm] 132/59 L 155/60 H Pulse Oximetry 93 96 [facility] 03/01/25 12:53 Temperature 98.2 F Pulse Rate Pulse Rate [Pulse Oximeter] 60 Respiratory Rate 16 Blood Pressure [Le ft Arm] 165/71 H Pulse Oximetry 96 [facility] DS: Data Data Completed and Pending Labs on day of discharge: Labs from last 24 hours 03/01/25 06:15 WBC 7.30 RBC 3.70 L Hgb 10.5 L Hct 33.2 MCV 90 MCH 28 MCHC 32 RDW Coeff of Ascencion 15.1 Plt Count 228 Neut % (Auto) 52.0 Lymph % (Auto) 31.4 Sawyer % (Auto) 8.9 Eos % (Auto) 6.2 Baso % (Auto) 0.8 Neut # (Auto) 3.80 Lymph # (Auto) 2.29 Sawyer # (Auto) 0.60 Eos # (Auto) 0.45 Baso # (Auto) 0.06 Abs Immat Gran (auto) 0.05 Imm/Tot Granulo (auto) 0.7 Sodium 139 Potassium 3.7 Chloride 106 Carbon Dioxide 28 Anion Gap 5 L BUN 11 Creatinine 0.8 Estimated Creat Clear 31.35 Estimated GFR 71 Glucose 90 Calcium 8.1 L Preliminary micro results at discharge 02/26/25 Unknown Stool Culture - Preliminary Stool Discharge Plan Discharge Disposition: [facility] Date of Admission: 02/26/25 22:09 Attending Provider on Discharge: Marylu Vilchis Primary Care Provider: Provider,Not a Local Discharge Medications: New atorvastatin 40 mg Tablet 80 mg PO HS Qty: 60 0RF acetaminophen 325 mg Tablet 650 mg PO Q4H PRNQty: 60 0RF lisinopril 20 mg Tablet 20 mg PO DAILY Qty: 30 0RF metoprolol tartrate 25 mg Tablet 12.5 mg PO BID Qty: 60 0RF metoprolol tartrate 25 mg tablet 25 mg PO Q4H PRNQty: 30 0RF Rx Instructions: For AFIB, Rapid Rate: take 1 tab and check pulse and blood pressure every 30 minutes. Goal is rate less than 100 and bp with a MAP >65 Eliquis 5 mg tablet 5 mg PO BID Qty: 60 2RF Continued levothyroxine 88 mcg tablet 88 mcg PO DAILY omega 2-xls-rxv-fish oil [Fish Oil] 1,000 (120-180) mg capsule 1 cap PO BID trazodone 100 mg tablet 100 mg PO QHS PRN lisinopril 40 mg tablet 40 mg PO DAILY Vitamin D (with calcium) Calcium + D Discontinued aspirin [Adult Aspirin Regimen] 81 mg tablet,delayed release (DR/EC) 81 mg PO DAILY amlodipine 10 mg tablet 10 mg PO DAILY atorvastatin 40 mg tablet 40 mg PO HS Discharge Orders: Discharge Order (Routine); Ordered 03/01/25 Ordered By: Marylu Vilchis Additional Instructions: Daily blood pressure regimen: metoprolol 12.5mg twice daily, lisinopril 20mg (decreased from 40mg) and no longer on the amlodipine. If heart-rate jumps up with her AFIB - she can have 25mg of metoprolol every four hours until her rate is less than 100; goal blood pressure needs to be Map >65 Atrial fibrillation (which is new information) and this new stroke - you will be on Eliquis 5mg twice daily. This is best for your heart and brain. I increased the dose of the statin (atorvastatin) to 80mg from 40mg daily. Follow-up - You should see [place] ([facility]) stroke neurology and [facility] in the next 4-6 weeks. Activity Level: Activity as Tolerated Discharge Diet: Heart Healthy (2 gm sodium, low fat) Follow Up Appointments: [facility] [Provider Group] Referral Note: hospital f/u left MCA stroke next available - 2-6 weeks ok any provider [facility] [Provider Group] Referral Note: any provider new AFIB, RVR and left MCA stroke 2-6 weeks Provider,Not a Local [Primary Care Provider, Family Practice] Referral Note: She will likely need a new PCP - you may choose one [facility] or [facility]. Forms: [facility] Info Instructions Admit to: SNF Discharge Potential: Fair Length of Stay: 30-90 days Can use facility standing orders?: Yes Code Status: DNR/DNI Rehab Potential: Fair Therapy: Physical Therapy and Occupational Therapy Therapy Orders: Evaluate and Treat and Gait Training Oxygen: No Urinary Catheter: No Orders are good >30 days: Yes
--- NOTE | 2025-03-01 15:30 | PC.NURSE ---
Pt is doing well today. Denies pain. Heart rate is 50-60, provider aware. Pt is ambulating well with standby assist and tolerating regular diet with thin liquid. Pt belongings and discharge instructions signed. Pt discharged to SNF in [place] via daughters at 1430,
== END 2025-03-01 14:30 | DRG 64 ==
LOC: ED 19:20 → MEDSURG 20:11
PROVIDERS: Family Medicine; Admitting Provider Family Medicine; Emergency Provider Emergency Medicine; Visit Provider Family Medicine
DX: I63.412 Cerebral infarction due to embolism of left middle cerebral artery (principal); G93.41 Metabolic encephalopathy; G81.91 Hemiplegia, unspecified affecting right dominant side; M62.82 Rhabdomyolysis; I24.89 Other forms of acute ischemic heart disease; I48.0 Paroxysmal atrial fibrillation; R47.01 Aphasia; R19.7 Diarrhea, unspecified; E86.0 Dehydration; R94.5 Abnormal results of liver function studies; I10 Essential (primary) hypertension; R40.2142 Coma scale, eyes open, spontaneous, at arrival to emergency department; R40.2252 Coma scale, best verbal response, oriented, at arrival to emergency department; R40.2362 Coma scale, best motor response, obeys commands, at arrival to emergency department; E03.9 Hypothyroidism, unspecified; I48.91 Unspecified atrial fibrillation; Z79.82 Long term (current) use of aspirin
CPT/HCPCS: 36415; 70450; 70496; 70498; 70551; 71046; 74177; 80048; 80053; 80061; 80076; 81001; 82550; 83036; 83605; 83735; 83880; 84145; 84443; 84484; 85025; 87045; 87046; 87086; 87427; 87493; 87631; 92526; 92610; 93005; 93246; 93306; 97110; 97116; 97162; 97165; 97530; 97535; 99285; A9270; J3480; J7030; J7120; Q9957; Q9967